=== PATIENT | female | born 1995 | race Caucasian/White ===

== ENCOUNTER 2023-09-14 09:50 | Inpatient (IN) | payer OTHER ==
[2023-09-17] VITALS (34 sets, daily range): BP systolic 85–125; BP diastolic 47–71; PULSE 75–111; TEMP 97.9–98.4
[2023-09-17] MEDS ORDERED: MAGNESIUM200 MG PO (07:22)
[2023-09-17] MEDS ORDERED: PRENATAL TABLET PO (07:22)
[2023-09-17] MEDS ORDERED: ASPIRIN 81M81 MG/TA2 PO (07:23)
[2023-09-17 08:07] LABS: BASO % 0.2 % (0.0-2.0); EOS # 0.1 K/mm3 (0.0-0.7); EOS % 0.5 % (0.0-4.0); GRAN # 6.6 K/mm3 (1.4-6.5); GRAN % 69.6 % (42.2-75.2); HEMATOCRIT 40.1 % (37.0-47.0); HEMOGLOBIN 13.7 g/dl (12.5-16.0); LYMPH # 2.3 K/mm3 (1.2-3.4); LYMPH % 24.5 % (20.0-51.0); MEAN CELL VOLUME 89 fl (80.0-100.0); MEAN CORPUSCULAR HEMOGLOBIN 30 pg (27-31); MEAN CORPUSCULAR HGB CONC 34 g/dl (33.0-37.0); MEAN PLATELET VOLUME 10.1 fl (7.4-10.4); MONO # 0.4 K/mm3 (0.1-0.6); MONO % 4.4 % (1.7-9.3); PLATELET COUNT 244 K/mm3 (130-400); RED BLOOD COUNT 4.53 M/mm3 (4.10-5.30); REDCELL DISTRIBUTION WIDTH-CV 13.9 % (11.5-14.5)
--- NOTE | 2023-09-17 10:00 | NUR ---
TOCO MONITOR ACCIDENTALLY UNPLUGGED WHILE PT ON BIRTHING BALL. UNABLE TO TRACE CTX AT THIS TIME, THIS RN GOES INTO PT ROOM TO TRACE TOCO AGAIN
--- NOTE | 2023-09-17 10:30 | NUR ---
UNABLE TO TRACE EFM AND TOCO DUE TO MATERNAL POSITION AND HABITUS. THIS RN AT BEDSIDE ATTEMPTING TO TRACE FHR AND CTX, PT AWAKE AND ALERT AND ORIENTED X3. ALSO UNABLE TO TRACE VS DUE TO PT MOVEMENT.
--- NOTE | 2023-09-17 10:45 | NUR ---
UNABLE TO TRACE EFM AND VS DUE TO MATERNAL POSITION AND MOVEMENT. THIS RN AT BEDSIDE ATTEMPTING TO TRACE. PT AWAKE ALERT AND ORIENTED X3.
--- NOTE | 2023-09-17 12:40 | NUR ---
[id number] UNABLE TO TRACK PT VS DUE TO PT AMUBLATING. THIS RN OBSERVES PT AMBULATING THROUGHOUT UNIT AWAKE, ALERT, AND ORIENTED X3.
--- NOTE | 2023-09-17 13:09 | NUR ---
1258 BERNA ENERGY TECHNICIAN AT BEDSIDE DISCUSSING EPIDURAL PROCEDURE WITH PT AND SPOUSE. PT SITTING UPRIGHT IN MIDDLE OF BED, VS STABLE, FHR BASELINE 130'S, GOOD ACCELS, NO DECELS, CTX Q 1-2.5 MIN. 1309 TEST DOSE ADMINISTERED PER BERNA ENERGY TECHNICIAN, PT VS STABLE, TOLERATED PROCEDURE WELL. 1312 PT REPOSITIONED COMFORTABLY, EFM CAT 1, PT VS STABLE.
--- NOTE | 2023-09-17 15:22 | NUR ---
1450 THIS RN AT BEDSIDE, PT REPORTS FEELING EXTREMELY UNCOMFORTABLE, CRIES AND ROCKS SIDE TO SIDE WITH CTX. PT EXCLAIMS "PLEASE TAKE MY BOWMAN CATH OUT I'M SO UNCOMFORTABLE IT HURTS." THIS RN TAKES BOWMAN OUT AND CHECKS PT SVE 9-/0, RN STAYS AT BEDSIDE ASSISTING MOM IN BREATHING TECHNIQUES. BERNA DINING CAR CONDUCTOR AT BEDSIDE ADMINISTERING ADDITIONAL MEDICATION TO HELP PT. 1507 [facility] CHARGE NURSE AT BEDSIDE ASSISTING THIS RN, SVE /0. NOTIFIED, NURSERY NURSE NOTIFIED, ROOM SET FOR DELIVERY, SPOUSE SUPPORTIVE AT BEDSIDE. 1517 AT BEDSIDE, PT BEGINS PUSHING. 1522 OF VIABLE MALE PER , NUCHAL X1. BABY PLACED ON MATERNAL CHEST, CORD CLAMPED AND CUT, NURSERY ASSUMES CARE OF INFANT. 1527 OF PLACENTA PER , BEGINS 2ND DEGREE LACERATION. PT TOLERATING WELL, VS STABLE. 1530 PT REPOSITIONED COMFORTABLY, FUNDUS FIRM AT UMBILICUS, LOCHIA SCANT, VS STABLE. ROOM CLEANED AND SET BACK FROM DELIVERY.
[2023-09-17] MEDS ORDERED: MOTRIN 800800 MG/TAB PO (15:51)
[2023-09-18 02:30] VITALS: BP 113/65; PULSE 67; TEMP 97.9
[2023-09-18 07:49] VITALS: BP 112/64; PULSE 76; TEMP 98.1
--- NOTE | 2023-09-18 09:43 | NUR ---
Initial visit; Patient thanked Care Information Associate for offering congratulations and God's blessings for the of her son. Care Information Associate thanked Sylvia for choosing [facility].
== END 2023-09-18 17:30 | disposition home or self-care (01) | DRG 807 ==
LOC: OB 09-15 09:49 → LDR 09-17 06:14 → OB 09-17 06:27
PROVIDERS: ADMIT Obstetrics & Gynecology
PROC: 10E0XZZ Delivery of Products of Conception, External Approach (ICD-10-PCS; principal; 2023-09-17)
PROC: 0KQM0ZZ Repair Perineum Muscle, Open Approach (ICD-10-PCS; 2023-09-17)
PROC: 3E033VJ Introduction of Other Hormone into Peripheral Vein, Percutaneous Approach (ICD-10-PCS; 2023-09-17)
PROC: 10907ZC Drainage of Amniotic Fluid, Therapeutic from Products of Conception, Via Natural or Artificial Opening (ICD-10-PCS; 2023-09-17)
DX: O24.420 Gestational diabetes mellitus in childbirth, diet controlled (principal); Z37.0 Single live birth; Z3A.38 38 weeks gestation of pregnancy; O99.214 Obesity complicating childbirth; K21.9 Gastro-esophageal reflux disease without esophagitis; O99.62 Diseases of the digestive system complicating childbirth; O36.63X0 Maternal care for excessive fetal growth, third trimester, not applicable or unspecified; O76 Abnormality in fetal heart rate and rhythm complicating labor and delivery; O70.1 Second degree perineal laceration during delivery; O69.81X0 Labor and delivery complicated by cord around neck, without compression, not applicable or unspecified
CPT/HCPCS: J2590; J2795; J7120